=== PATIENT | female | born 1980 | race Caucasian/White ===

== ENCOUNTER 2017-03-01 00:23 | Emergency (ER) | payer OTHER ==
[~2017-03-01] VITALS: Ht 154.9 cm; Wt 65.8 kg
[~2017-03-01 00:23] MED LIST: FIORICET 50-301 EACH PO; OXYCODONE HCL10 M2 PO
[2017-03-01 00:35] VITALS: BP 138/83
--- NOTE | 2017-03-01 00:48 | ED UPPER/LOWER EXTREMITY COMPL ---
History of Present Illness General Chief Complaint: Lower Extremity Problems Stated Complaint: RT LEG PAIN PER PT WORRIED OF DVT Source: patient, family Exam Limitations: no limitations Vital Signs & Intake/Output Vital Signs & Intake/Output Vital Signs Date Time Temp Pulse Resp B/P B/P Pulse O2 O2 Flow FiO2 Mean Ox Delivery Rate 03/01 0035 98.5 92 18 138/83 98 Room Air Allergies Coded Allergies: NO KNOWN ALLERGIES (06/05/13) Reconcile Medications Butalb/Acetaminophen/Caffeine (Fioricet 50-300-40 MG Capsule) 50 MG-300 MG-40 MG CAPSULE 1 TAB PO TID PRN HEADACHES Oxycodone HCl 10 MG TABLET 1 TAB PO 4XDP PAIN (Reported) Triage Note: TRIAGE: PATIENT TO ER FROM HOME W/ C/O RIGHT BEHIND KNEE PAIN "WANT TO MAKE SURE IT'S NOT A DVT," ONSET 11AM CRAMPING NOW THROBBING. DENIES DISCOLORATION/ SWELLING TO SITE, NOT ABLE TO VISUALIZE IN TRIAGE D/T PT CLOTHING. Triage Nurses Notes Reviewed? yes : No Patient currently breastfeeds: No HPI: Patient presents to the emergency Department with complaints of a blood clot to her leg. Patient states that for the past 2 days she has been having crampy feeling behind her right knee. The pain is constant. The pain increases when she flexes her knee. At its worst the pain is 6 out of 10 and is currently on 4 out of 10. There is no chest pain or shortness of breath. There is no leg swelling. There is no known injury. Patient was speaking to her paramedics brittney who informed her that it could be a blood clot and that it could break off her alarm and she could . Patient became concerned him in to the emergency room for evaluation. Past History Travel History Traveled to [place] past 21 day No Medical History Any Pertinent Medical History? 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 No Review of Systems Review of Systems Constitutional: Reports: no symptoms. Respiratory: Reports: no symptoms. Cardiovascular: Reports: no symptoms. Gastrointestinal/Abdominal: Reports: no symptoms. Musculoskeletal: Reports: see HPI. Neurological/Psychological: Reports: no symptoms. Immunological: Reports: no symptoms. Physical Exam Physical Exam General Appearance: well developed/nourished, alert, awake, anxious, mild distress Head: atraumatic, normal appearance Eyes: Bilateral: PERRL, EOMI. Neck: normal inspection, supple, full range of motion Cardiovascular/Respiratory: normal breath sounds, normal peripheral pulses, regular rate/rhythm, no respiratory distress Leg Right: normal range of motion, normal inspection, NO EDEMA Knee Right: normal range of motion, normal inspection Knee Ligaments Right: STABLE Neurologic/Tendon: normal sensation, normal motor functions, normal tendon functions Progress Differential Diagnosis: DVT, sprain, FONSECA'S CYST Plan of Care: OP US Departure Departure Disposition: HOME OR SELF CARE Condition: Stable Clinical Impression Primary Impression: Right leg pain Referrals: JOHN CHEN APRN (PCP/Family) Additional Instructions: HAVE AN OUTPATINET ULTRASOUND RETURN FOR ANY CONCERNS Departure Forms: Customer Survey General Discharge Information
== END 2017-03-01 01:23 ==
LOC: ERH 00:23
DX: M79.604 Pain in right leg (principal)

== ENCOUNTER 2017-11-25 14:45 | Emergency (ER) | payer OTHER ==
[~2017-11-25] VITALS: Ht 154.9 cm; Wt 63.5 kg
[~2017-11-25 14:45] MED LIST changes: +CARDIZEM CD120 M2 PO; +MELOXICAM15 M1 PO; +NAPROSYN500 M1 PO; +OMEPRAZOLE20 M2 PO; +PERCOCET 5-3251 EACH PO; +TRI-PREVIFEM T1 EACH PO; +VITAMIN D250000 UNIT PO
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
[2017-11-25] MEDS ORDERED: MUCINEX DM ER1 EACH PO (17:45)
[2017-11-25] MEDS ORDERED: NASONEX17 GM NASB (17:45)
[2017-11-25 17:48] VITALS: BP 124/99
== END 2017-11-25 17:54 ==
LOC: ERH 14:45
DX: J06.9 Acute upper respiratory infection, unspecified (principal); H01.003 Unspecified blepharitis right eye, unspecified eyelid
CPT/HCPCS: 81001; 81025

== ENCOUNTER 2018-05-29 13:19 | Emergency (ER) | payer OTHER ==
[~2018-05-29] VITALS: Ht 162.6 cm; Wt 68.0 kg
[~2018-05-29 13:19] MED LIST changes: +MUCINEX DM ER1 EACH PO; +NASONEX17 GM NASB
[2018-05-29 13:27] VITALS: BP 137/94
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
--- NOTE | 2018-05-29 13:56 | RADIOLOGY REPORT ---
EXAMINATION: XR FOREARM, LEFT XR WRIST, LEFT CLINICAL INFORMATION: Pain. Assess for fracture. COMPARISON: None. TECHNIQUE: AP and lateral views of the left forearm were obtained. AP, lateral, oblique and scaphoid views of the left wrist were obtained. FINDINGS: Left forearm: There is normal alignment of the elbow joint. There are no fractures or joint effusions. There are no radiopaque foreign bodies in the soft tissues. There is equivocal mild soft tissue fullness along the volar aspect of the distal forearm. Left wrist: There is normal alignment of the osseous structures. No fractures are demonstrated. The joint spaces are maintained. There is no significant soft tissue swelling. There are no radiodense foreign bodies. IMPRESSION: 1. There are no acute fractures or subluxations. There are no radiodense foreign bodies. 2. There is equivocal increased density in the volar aspect of the distal forearm. Correlate clinically.
[2018-05-29] MEDS ORDERED: NAPROSYN500 M1 PO (15:57)
[2018-05-29] MEDS ORDERED: LIDODERM1 EACH TOP (15:57)
== END 2018-05-29 16:06 ==
LOC: ERH 13:19
DX: M25.532 Pain in left wrist (principal); M79.632 Pain in left forearm
CPT/HCPCS: 73090-LT; 73110-LT; 96372; J1885